=== PATIENT | male | born 2000 | race Hispanic/Latino ===

== ENCOUNTER 2023-12-06 20:48 | Emergency (ER) | payer SELFPAY ==
--- OUTSIDE RECORDS SUMMARY | 2023-12-06 20:50 | XMS REPORT | Continuity of Care Document ---
Author Name Unknown Address [address] [place] [address] [facility] [address] [place] [address] Care Team Providers Care Food Equipment Service Technician Name Role Phone Pcp, Patient Does Not Have A Primary Care Physic bernadette ERINN NEVES Attending Clinician UnavailJENNIFER Cullen Attending Clinician Unavailab Jennifer Walton DO Attending Clinician [phone] WILFREDO TILLMAN Attending Clinician Unavailable Wilfredo Tillman MD Attending Clinician [phone] RADIOLOGY Attending Clinician Unavailable Radiology Attending Clinician Unavailable Doctor Unassigned, [place] Attending Clinician JUAN Goodrich Admitting Clinician Unavailable Payers Payer Name Policy Type Policy Number Effective Date Expirati on Date Source [facility] [id number] 2018 00:00:00 Problems Condition Name Condition Details Condition Category Status Onset Date Resolution Date Last Treatment Date Treating Clinician Comments Source No known active problems No known active problems Disease [facility] Allergies, Adverse Reactions, Alerts Allergy Name Allergy Type Status Severity Reaction(s) Onset Date Inactive Date Treating Clinician Comments Source NO KNOWN ALLERGIE S Drug Class Active [facility] Social History Social Habit Start Date Stop Date Quantity Comments Source Exposure to SARS-CoV-2 (event) 2022-08-10 00:00:00 2022-08-20 07:29:00 Not sure [facility] Tobacco use and exposure 2018-02-07 00:00:00 2018-02-07 00:00:00 Smokeless tobacco non-user [facility] Sex Assigned At 2000 00:00:00 2000 00:00:00 [facility] Smoking Status Start Date Stop Date Source Never smoked tobacco [facility] Medications Ordered Medication Name Filled Medication Name Start Date Stop Date Current Medication? Ordering Clinician Indication Dosage Frequency Signature (SIG) Comments Components Source NaCl 0.9% (NS) bolus infusion 1,000 mL 08-20 13:45: 00 08-20 14:26 :00 No 1000mL at 999 mL/hr, 1,000 mL, IV Infusion, ONCE, 1 dose, On Fri08/20/22 at 0845, [facility] ondansetron (ZOFRAN (PF)) injection 4 mg 08-20 13:00: 00 08-20 13:19 :00 No 4mg 4 mg, Slow IV Push, ONCE, 1 dose, On Fri08/20/22 at 0800, [facility] ondansetron 4 mg disintegrat ing tablet 08-20 00:00: 00 Yes [id number] 4mg Take 1 tablet by mouth every 8 (eight) hours as needed for Nausea and Vomiting (N/V). [facility] NaCl 0.9% (NS) IV infusion 1,000 mL 2021-04 04:15: 00 Yes 1000mL at 999 mL/hr, Intravenou s, CONTINUOUS , Starting on Fri03/12/22 at 2215, Until Discontinu ed, Routine [facility] ketorolac (TORADOL) injection 30 mg 2021-04 04:15: 00 03-13 03:19 :00 No 30mg 30 mg, Slow IV Push, ONCE, 1 dose, On Fri03/12/22 at 2215, Routine [facility] dicyclomine 20 mg tablet 2021-04 00:00: 00 Yes [id number] 20mg Take 1 tablet by mouth every 6 (six) hours as needed for Abdominal pain. [facility] ondansetron (ZOFRAN) 4 mg tablet 2021-04 00:00: 00 Yes [id number] 4mg Take 1 tablet by mouth every 8 (eight) hours as needed for Nausea and Vomiting (N/V). [facility] ondansetron (ZOFRAN ODT) 8 mg disintegrat ing tablet 08-30 00:00: 00 08-20 00:00 :00 No [id number] 8mg Take 1 tablet by mouth every 8 (eight) hours as needed for Nausea and Vomiting (N/V). [facility] Vital Signs Vital Name Observation Time Observation Value Comments S nicci Systolic blood pressure 2022-08-20 14:21:00 119 mm[Hg] [facility] Diastolic blood pressure 2022-08-20 14:21:00 70 mm[Hg] [facility] Heart rate 2022-08-20 14:21:00 80 /min [facility] Respiratory rate 2022-08-20 14:21:00 16 /min [facility] Oxygen saturation in Arterial blood by Pulse oximetry 2022-08-20 14:21:00 100 /min [facility] Body temperature 2022-08-20 12:30:00 36.78 Keke [facility] Body height 2022-08-20 12:30:00 162.6 cm [facility] Body weight 2022-08-20 12:30:00 79.379 kg [facility] BMI 2022-08-20 12:30:00 30.04 kg/m2 [facility] Systolic blood pressure 2022-03-13 04:00:00 112 mm[Hg] [facility] Diastolic blood pressure 2022-03-13 04:00:00 68 mm[Hg] [facility] Heart rate 2022-03-13 04:00:00 93 /min [facility] Respiratory rate 2022-03-13 04:00:00 16 /min [facility] Oxygen saturation in Arterial blood by Pulse oximetry 2022-03-13 04:00:00 98 /min [place] [facility] Body temperature 2022-03-13 02:53:00 37.44 Keke [facility] Body height 2022-03-13 02:53:00 162.6 cm [facility] Body weight 2022-03-13 02:53:00 88.905 kg [facility] BMI 2022-03-13 02:53:00 33.64 kg/m2 [facility] Procedures Procedure Date / Time Performed Performing Clinicia n Source CONSENT/REFUSAL FOR DIAGNOSIS AND TREATMENT 2022-08-20 12:17:16 Doctor Unassigned, [place] [facility] LIPASE 2022-03-13 03:19:00 Wilfredo Tillman [facility] COMP. METABOLIC PANEL ([id number]) 2022-03-13 03:19:00 Wilfredo Tillman [facility] CBC WITH DIFF 2022-03-13 03:19:00 Wilfredo Tillman [facility] URINALYSIS 2022-03-13 03:19:00 Wilfredo Tillman [facility] NOTICE OF PRIVACY PRACTICES 2022-03-13 02:23:21 Doctor Unassigned, [place] [facility] CONSENT/REFUSAL FOR DIAGNOSIS AND TREATMENT 2022-03-13 02:22:40 Doctor Unassigned, [place] [facility] XR CHEST 2 VW 2019-06-08 22:51:15 Juan Orantes [facility] ASSIGNMENT OF BENEFITS 2019-06-08 22:37:32 Docto r Unassigned, [place] [facility] Encounters Start Date/Time End Date/Time Encounter Type Admission Type Attending Clinicians Care Facility Care Department Encounter ID Source 2023-08-14 16:24:00 2023-08-14 17:22:00 Emergency E ERINN NEVES [facility] [id number] [address] [place] [address] 2022-08-20 07:31:00 2022-08-20 09:26:00 Emergency X JENNIFER CHAMBERS [facility] ERT [id number] [facility] 2022-08-20 07:31:00 2022-08-20 09:26:00 Emergency Jennifer Chambers [facility] [id number] [facility] 2022-03-12 20:57:00 2022-03-12 22:57:00 Emergency X WILFREDO TILLMAN [facility] ERT [id number] [facility] 2022-03-12 20:57:00 2022-03-12 22:57:00 Emergency Wilfredo Tillman [facility] [id number] [id number] [facility] 2019-06-08 16:42:05 2019-06-08 23:59:00 Outpatient R RADIOLOGY [facility] [id number] [facility] 2019-06-08 16:42:00 2019-06-08 23:59:[address] [facility] [id number] [facility] 2019-06-08 00:00:00 2019-06-08 00:00:00 Orders Only Doctor Unassigned, [place] [facility] [id number] [id number] [id number] [facility] Results Test Description Test Time Test Comments Results Result Co mments Source [facility] Test Item Value Reference Range Interpretation Comme nts LIPASE (test code = 6692784428) 63 U/L 0-220 Lab Interpretation (test cod e = 49243-6) [facility] [id number] 03:42:43* Test Item Value Reference Range Interpretation Comme nts WBC (test code = 6690-2) See_Comment [Automated messa ge] The system which generated this result transmitted reference range: 4.20 - 10.70 10*3/?L. The reference range was not used to interpret this result as normal/abnormal. RBC (test code = 789-8) See_Comment [Automated messa ge] The system which generated this result transmitted reference range: 4.26 - 5.52 10*6/?L. The reference range was not used to interpret this result as normal/abnormal. HGB (test code = 718-7) 15.7 g/dL 12.2-16.4 HCT (test code = 4544-3) 44.7 % 38.4-49.3 MCV (test code = 787-2) 86.3 fL 81.7-95.6 MCH (test code = 785-6) 30.3 pg 26.1-32.7 MCHC (test code = 786-4) 35.1 g/dL 31.2-35.0 H RDW-SD (test code = 16226-0) 37.7 fL 38.5-51.6 L RDW-CV (test code = 788-0) 11.9 % 12.1-15.4 L PLT (test code = 777-3) See_Comment [Automated [employer] ge] The system which generated this result transmitted reference range: 150 - 328 10*3/?L. The reference range was not used to interpret this result as normal/abnormal. MPV (test code = 81782-9) 9.4 fL 9.8-13.0 L NRBC/100 WBC (test code = 1762812654) See_Comment [Automated [employer] ssage] The system which generated this result transmitted reference range: 0.0 - 10.0 /100 WBCs. The reference range was not used to interpret this result as normal/abnormal. NRBC x10^3 (test code = 7408430887) See_Comment [Automated [employer] ge] The system which generated this result transmitted reference range: 10*3/?L. The reference range was not used to interpret this result as normal/abnormal. GRAN MAT (NEUT) % (test code = 770-8) 63.4 % IMM GRAN % (test code = 0068116076) 0.20 % LYMPH % (test code = 736-9) 26.2 % MONO % (test code = 5905-5) 9.8 % EOS % (test code = 713-8) 0.2 % BASO % (test code = 706-2) 0.2 % GRAN MAT x10^3(ANC) (test code = 7336903487) 3.31 10*3/uL 1.99-6.95 IMM GRAN x10^3 (test code = 7065931619) 0.00-0.06 LYMPH x10^3 (test code = 731-0) 1.37 10*3/uL 1.09-3.23 MONO x10^3 (test code = 742-7) 0.51 10*3/uL 0.36-1.02 EOS x10^3 (test code = 711-2) 0.06-0.53 L BASO x10^3 (test code = 704-7) 0.01-0.09 Lab Interpretation (test code = 54523-0) [facility] [id number] 22:53:13HISTORY: ?Chest pain. TECHNIQUE: PA and lateral views of the chest are obtained. No prior cheststudy available for comparison. FINDINGS: No acute pneumonia detected. No pneumothorax or pleural effusionor pulmonary congestion. Cardiomediastinal contour appears normal. No acutebony abnormalities. No compression deformity in the thoracic vertebralbodies. CONCLUSIONS: Normal study.[facility], Radiant Results Inft User - 06/08/2019 4:54 PM CSTHISTORY: Chest pain.TECHNIQUE: PA and lateral views of the chest are obtained. No prior cheststudy available for comparison.FINDINGS: No acute pneumonia detected. No pneumothorax or pleural effusionor pulmonary congestion. Cardiomediastinal contour appears normal. No acutebony abnormalities. No compression deformity in the thoracic vertebralbodies.CONCLUSIONS: Normal study.[facility]
--- NOTE | 2023-12-06 22:07 | RAD REPORT ---
EXAM DESCRIPTION: US - Scrotum Testicles - 12/06/2023 9:58 pm CLINICAL HISTORY: Testicular pain COMPARISON: None FINDINGS: Right testicle measures 3.4 x 1.4 x 1.7 centimeters. Echotexture is homogeneous. Normal bl ood flow Left testicle measures 3.6 x 1.5 x 2 point centimeters. Echotexture is homogeneous. Normal blood flow The epididymides are normal in size and echotexture. Normal blood flow is seen. 1.1 centimeter left spermatocele IMPRESSION: 1.1 centimeter left spermatocele
[2023-12-07 00:33] LABS: Specific Gravity > 1.030 (1.005-1.030); Sqamous Epithelial None Seen /HPF (None Seen); Urine Bacteria None Seen /HPF (<20); Urine Bilirubin NEGATIVE (Negative); Urine Blood Negative (Negative); Urine Clarity Clear (Clear); Urine Color Yellow (Yellow); Urine Culture Reflex Order NOT NEEDED; Urine Glucose NEGATIVE (Negative); Urine Ketones TRACE (Negative); Urine Microscopic Reflex YN ORDER UMIC; Urine Mucus 1+ /HPF (None Seen); Urine Nitrite NEGATIVE (Negative); Urine Protein TRACE (Negative); Urine RBC <5 /HPF (None Seen); Urine Urobilinogen 1+ (Normal); Urine WBC <5 /HPF (<5)
--- NOTE | 2023-12-07 00:35 | EDPHYS ---
Physician Documentation [facility] Name: Avni Herrera Age: 22 yrs Sex: Male : 2000 Arrival Date: 12/06/2023 Time: 20:48 Bed 5 Private MD: ED Physician Tin Chu HPI: 12/06 00:29 This 22 yrs old Male presents to ER via Ambulatory with complaints of Penile kb Problem, Testicular Problem. 00:29 Pt is a 22 year old male who presents for intermittent pain to left side of head of kb penis that started a week ago. Denies urinary symptoms, fever, swelling, erythema. Reports intermittent left testicular pain as well. No aggravating or alleviating symptoms. Historical: - Allergies: 12/05 21:05 No Known Allergies; nj1 - PMHx: 21:05 None; nj1 - PSHx: 21:05 Appendectomy; nj1 - Immunization history:: Client reports receiving the 1st dose of the Covid vaccine. - Infectious Disease History:: Denies. - Social history:: Smoking status: Patient reports the use of cigarette tobacco products, denies chronic smoking, but will smoke occasionally. ROS: 12/06 00:28 Constitutional: As per HPI kb Exam: 00:28 Constitutional: This is a well developed, well nourished patient who is awake, alert, kb and in no acute distress. Head/Face: Normocephalic, atraumatic. ENT: Moist Mucous membranes Cardiovascular: Regular rate Respiratory: Respirations even and unlabored. No increased work of breathing. Talking in full sentences Abdomen/GI: Soft, non-tender. No distention Male : Normal genitalia with no discharge or lesions. Skin: Warm, dry with normal turgor. Normal color. MS/ Extremity: Pulses equal, no cyanosis. Neurovascular intact. Full, normal range of motion. Neuro: Awake and alert, GCS 15, oriented to person, place, time, and situation. Moves all extremities. Normal gait. Vital Signs: 12/05 21:02 BP 122 / 66; Pulse 89; Resp 18; Temp 98.8(O); Pulse Ox 100% ; Weight 80.74 kg; Height 5 nj1 ft. 3 in. ; 21:30 BP 123 / 81; Pulse 78; Resp 16; Pulse Ox 100% on R/A; me1 22:30 BP 107 / 71; Pulse 75; Resp 15; Pulse Ox 99% on R/A; me1 23:30 BP 116 / 81; Pulse 80; Resp 15; Pulse Ox 99% on R/A; me1 12/06 00:47 BP 121 / 68; Pulse 72; Resp 18; Temp 98.8; Pulse Ox 99% ; Pain 3/10; bm8 12/05 21:02 Body Mass Index 31.53 (80.74 kg, 160.02 cm) nj1 12/06 00:47 Pain Scale: Adult bm8 [facility] Coma Score: 00:47 Eye Response: spontaneous(4). Motor Response: obeys commands(6). Verbal Response: bm8 oriented(5). Total: 15. MDM: 12/05 21:22 Patient medically screened. kb 12/06 00:30 Differential diagnosis: STI, UTI, torsion, epididymitis. Data reviewed: vital signs, kb nurses notes. Counseling: I had a detailed discussion with the patient and/or guardian regarding the historical points, exam findings, and any diagnostic results supporting the discharge/admit diagnosis, lab results, radiology results, the need for outpatient follow up, a family practitioner, a urologist, to return to the emergency department if symptoms worsen or persist or if there are any questions or concerns that arise at home. 12/05 21:34 Order name: Urinalysis w/ reflexes; Complete Time: 00:34 kb 12/05 21:34 Order name: US Scrotum Testicles; Complete Time: 22:09 kb Administered Medications: No medications were administered Disposition Summary: 12/07/23 00:34 Discharge Ordered Notes: Location: Home kb Condition: Stable kb Diagnosis - Spermatocele of epididymis, unspecified kb Followup: kb - With: Emergency Department - When: As needed - Reason: Worsening of condition Followup: kb - With: Private Physician - When: 2 - 3 days - Reason: Recheck today's complaints, Continuance of care, Re-evaluation by your physician Discharge Instructions: - Discharge Summary Sheet kb - Spermatocele kb Forms: - Medication Reconciliation Form kb - Antibiotic Education kb - Prescription Opioid Use kb - Patient Portal Instructions kb - Leadership Thank You Letter kb Signatures: Dispatcher [employer] Ester Coulter, ALESSIA-C ALESSIA-Ckb Srinivasan, [place], RN RN nj1
--- NOTE | 2023-12-07 00:35 | ER ---
Nurse's Notes [facility] Name: Avni Herrera Age: 22 yrs Sex: Male : 2000 Arrival Date: 12/06/2023 Time: 20:48 Bed 5 Private MD: Diagnosis: Spermatocele of epididymis, unspecified Presentation: 12/05 21:02 Chief complaint: Patient states: Sensitive area to left side of head of penis, hurts nj1 with palpation, first noticed it a week ago, not getting any better. No penile discharge. No skin irritation noted. Coronavirus screen: Vaccine status: Patient reports receiving the 1st dose of the Covid vaccine. Ebola Screen: Patient denies travel to an Ebola-affected area in the 21 days before illness onset. Initial Sepsis Screen: Does the patient meet any 2 criteria? No. Patient's initial sepsis screen is negative. Does the patient have a suspected source of infection? No. Patient's initial sepsis screen is negative. Risk Assessment: Do you want to hurt yourself or someone else? Patient reports no desire to harm self or others. Onset of symptoms was November 2023. 21:02 Method Of Arrival: Ambulatory [facility] 21:02 Acuity: LILLI 4 nj1 Triage Assessment: 21:06 General: Appears in no apparent distress. comfortable, Behavior is calm, cooperative, nj1 appropriate for age. Pain: Denies pain. Historical: - Allergies: 21:05 No Known Allergies; nj1 - PMHx: 21:05 None; nj1 - PSHx: 21:05 Appendectomy; nj1 - Immunization history:: Client reports receiving the 1st dose of the Covid vaccine. - Infectious Disease History:: Denies. - Social history:: Smoking status: Patient reports the use of cigarette tobacco products, denies chronic smoking, but will smoke occasionally. Screenin:15 [facility] ED Fall Risk Assessment (Adult) History of falling in the last 3 months, wa1 including since admission No falls in past 3 months (0 pts) Confusion or Disorientation No (0 pts) Intoxicated or Sedated No (0 pts) Impaired Gait No (0 pts) Mobility Assist Device Used No (0 pt) Altered Elimination No (0 pt) Score/Fall Risk Level 0 - 2 = Low Risk Maintained a safe environment, Provided non-skid footwear, Hourly rounding (assess needs \T\ fall precautionary measures) done. Abuse screen: Denies threats or abuse. Nutritional screening: No deficits noted. Tuberculosis screening: No symptoms or risk factors identified. Assessment: 21:15 General: Appears uncomfortable, well groomed, well developed, well nourished, Behavior me1 is calm, cooperative, appropriate for age, Sensitive area to left side of head of penis, hurts with palpation, first noticed it a week ago, not getting any better. No penile discharge. No skin irritation noted. . Pain: Complains of pain in head of penis and left testicle Pain does not radiate. Pain currently is 2 out of 10 on a pain scale. Quality of pain is described as tender, Pain began about a week ago Is intermittent. Neuro: Level of Consciousness is awake, alert, obeys commands, Oriented to person, place, time, situation, Appropriate for age. Cardiovascular: Patient's skin is warm and dry. Respiratory: Airway is patent Respiratory effort is even, unlabored, Respiratory pattern is regular, symmetrical. GI: No signs and/or symptoms were reported involving the gastrointestinal system. : Reports pain testicle, left side of the head of the penis and left testicle. :. EENT: No signs and/or symptoms were reported regarding the EENT system. Derm: Skin is intact, is healthy with good turgor, Skin is pink, warm \T\ dry. Musculoskeletal: No signs and/or symptoms reported regarding the musculoskeletal system. 12/06 00:47 Reassessment: Patient appears in no apparent distress at this time. Patient and/or bm8 family updated on plan of care and expected duration. Pain level reassessed. Patient is alert, oriented x 3, equal unlabored respirations, skin warm/dry/pink. Patient states feeling better. Patient states symptoms have improved. Pain: Pain currently is 3 out of 10 on a pain scale. Vital Signs: 12/05 21:02 BP 122 / 66; Pulse 89; Resp 18; Temp 98.8(O); Pulse Ox 100% ; Weight 80.74 kg; Height 5 nj1 ft. 3 in. ; 21:30 BP 123 / 81; Pulse 78; Resp 16; Pulse Ox 100% on R/A; me1 22:30 BP 107 / 71; Pulse 75; Resp 15; Pulse Ox 99% on R/A; me1 23:30 BP 116 / 81; Pulse 80; Resp 15; Pulse Ox 99% on R/A; me1 12/06 00:47 BP 121 / 68; Pulse 72; Resp 18; Temp 98.8; Pulse Ox 99% ; Pain 3/10; bm8 12/05 21:02 Body Mass Index 31.53 (80.74 kg, 160.02 cm) nj1 12/06 00:47 Pain Scale: Adult bm8 Radha Coma Score: 00:47 Eye Response: spontaneous(4). Motor Response: obeys commands(6). Verbal Response: bm8 oriented(5). Total: 15. ED Course: 12/05 20:52 Patient arrived in ED. jj6 21:05 Triage completed. nj1 21:06 Arm band placed on right wrist. nj1 21:15 Patient has correct armband on for positive identification. Bed in low position. Call wa1 light in reach. Side rails up X 1. Provided Education on: POC. Verbalized understanding. . Client placed on continuous cardiac and pulse oximetry monitoring. NIBP monitoring applied. Pulse ox on. NIBP on. 21:15 No provider procedures requiring assistance completed. me1 21:15 Patient did not have IV access during this emergency room visit. wa1 21:21 [facility] kb 21:21 Tin Chu MD is Attending Physician. kb 22:00 Scrotum Testicles In Process Unspecified. EDMS 23:43 Urinalysis w/ reflexes Sent. me1 23:43 Urine collected: clean catch specimen, cloudy. wa1 23:51 Lucas Peterson, RN is Primary Nurse. bm8 Administered Medications: No medications were administered Medication: 23:44 VIS not applicable for this client. me1 Outcome: 12/06 00:34 Discharge ordered by . kb 00:47 Discharged to home ambulatory, bm8 00:47 Condition: stable 00:47 Discharge instructions given to patient, family, Instructed on discharge instructions, follow up and referral plans. safe sex practices, safety practices, Demonstrated understanding of instructions, follow-up care, medications, 00:48 Patient left the ED. bm8 Signatures: Dispatcher [employer] EDOR Ester Ayala FNP-C FNP-Flakita Laurent jj6 Juana Mattson RN RN nj1 Kiesha Vazquez RN RN me1 Lucas Peterson, RN RN bm8 Corrections: (The following items were deleted from the chart) 12/05 21:06 21:02 Acuity: LILLI [address] [facility] :44 21:02 Chief complaint: Patient states: Sensitive area to left side of head of penis, me1 hurts with palpation, first noticed it a week ago, not getting any better. No penile discharge. No skin irritation noted. [facility] 23:44 General: Appears uncomfortable, well groomed, well developed, well nourished, me1 Behavior is calm, cooperative, appropriate for age, Sensitive area to left side of head of penis, hurts with palpation, first noticed it a week ago, not getting any better. No penile discharge. No skin irritation noted. . [facility] 48 23:44 Pain: Complains of pain in head of penis and left testicle Pain does not radiate. wa1 Pain currently is 2 out of 10 on a pain scale. Quality of pain is described as tender, Pain began about a week ago Is intermittent, [facility] 23:44 Neuro: Level of Consciousness is awake, alert, obeys commands, Oriented to wa1 person, place, time, situation, Appropriate for age [facility] 23:44 Cardiovascular: Patient's skin is warm and dry. [place] [id number] 48 23:44 Respiratory: Airway is patent Respiratory effort is even, unlabored, Respiratory wa1 pattern is regular, symmetrical, [facility] 23:44 GI: No signs and/or symptoms were reported involving the gastrointestinal system. [place] [id number] 23:44 : Reports pain testicle, left side of the head of the penis and left testicle [place] [address] 23:44 EENT: No signs and/or symptoms were reported regarding the EENT system. [place] [id number] 48 23:44 : [place] [address] 23:44 Derm: Skin is intact, is healthy with good turgor, Skin is pink, warm \T\ dry. [place] [id number] 48 23:44 Musculoskeletal: No signs and/or symptoms reported regarding the musculoskeletal [facility]. [facility] 23:44 [facility] Fall Risk Assessment (Adult) History of falling in the last 3 months, [facility] including since admission No falls in past 3 months (0 pts) Confusion or Disorientation No (0 pts) Intoxicated or Sedated No (0 pts) Impaired Gait No (0 pts) Mobility Assist Device Used No (0 pt) Altered Elimination No (0 pt) Score/Fall Risk Level 0 - 2 = Low Risk Maintained a safe environment, Provided non-skid footwear, Hourly rounding (assess needs \T\ fall precautionary measures) done, [facility] :48 23:44 Abuse screen: Denies threats or abuse. [place] [id number] :48 23:44 Nutritional screening: No deficits noted. [place] [address] 23:48 23:44 Tuberculosis screening: No symptoms or risk factors identified. [place] [id number] 23:49 21:15 Patient has correct armband on for positive identification. Bed in low position. [facility] Call light in reach. Side rails up X 1. [facility] 23:49 21:15 Provided Education on: POC. Verbalized understanding. . [place] [id number] 23:49 21:15 Client placed on continuous cardiac and pulse oximetry monitoring. NIBP [facility] monitoring applied. Pulse ox on. NIBP on. [facility]
[2023-12-07 01:41] VITALS: TEMP 98.8
[2023-12-07 01:45] VITALS: O2SAT 99
[2023-12-07 01:48] VITALS: BP 121/68
== END 2023-12-07 00:48 | disposition home or self-care (01) ==
LOC: ER 20:48
DX: N43.41 Spermatocele of epididymis, single (principal)
CPT/HCPCS: 76870; 81001; 99284